=== PATIENT | male | born 1980 | race Two or more races ===

== ENCOUNTER 2020-04-12 16:00 | Emergency (ER) | payer MEDICAID, OTHER ==
[2020-04-12 16:02] VITALS: BP 115/112
[2020-04-12] MEDS ORDERED: LIDOCAINE 1% HCL (LOCAL ANESTH.) INJ 20ML MDV IJ ONE (17:00)
== END 2020-04-12 18:17 | disposition home or self-care (01) ==
LOC: ER 16:00
DX: S51.811A Laceration without foreign body of right forearm, initial encounter (principal); S51.851A Open bite of right forearm, initial encounter; W54.0XXA Bitten by dog, initial encounter; Y93.89 Activity, other specified; Y92.89 Other specified places as the place of occurrence of the external cause; Y99.8 Other external cause status
CPT/HCPCS: 12001